=== PATIENT | female | born 1950 | race Hispanic/Latino ===

== ENCOUNTER → 2019-04-02 | Outpatient (CLI) | payer OTHER | END | disposition home or self-care (01) | LOC: RAH 07:35 | PROVIDERS: ATTEND Internal Medicine | DX: K80.11 Calculus of gallbladder with chronic cholecystitis with obstruction (principal) | CPT/HCPCS: 76700 ==

== ENCOUNTER → 2019-04-11 | Outpatient (CLI) | payer OTHER | END | disposition home or self-care (01) | LOC: RAH 13:23 | PROVIDERS: ATTEND Internal Medicine | DX: K57.30 Diverticulosis of large intestine without perforation or abscess without bleeding (principal); K80.20 Calculus of gallbladder without cholecystitis without obstruction | CPT/HCPCS: 74176 ==

== ENCOUNTER 2024-09-08 09:55 | Observation (INO) | payer OTHER ==
[~2024-09-08] VITALS: Ht 162.6 cm; Wt 62.6 kg
[2024-09-08 11:19] LABS: CARBON DIOXIDE 33 mmol/L (21-32); CHLORIDE 97 mmol/L (101-111); GLOMERULAR FILTR. RATE CALC 59 mL/min (>90); GLUCOSE,RANDOM 113 mg/dL (70-105); POTASSIUM 3.3 mmol/L (3.5-5.1); SODIUM SERUM 141 mmol/L (136-145); UREA NITROGEN, BLOOD 14 mg/dL (7-18)
[2024-09-08 11:20] LABS: BASOPHILS # (AUTO) 0.04 K/uL (0.00-0.20); BASOPHILS % (AUTO) 0.3 % (0.0-5.0); EOSINOPHILS # (AUTO) 0.02 K/uL (0.00-0.70); EOSINOPHILS % (AUTO) 0.2 % (0.0-8.0); HEMATOCRIT 39.7 % (36-48); IMMATURE GRANULOCYTE ABSOLUTE 0.09 K/uL (0-1); LYMPHOCYTES # (AUTO) 1.1 K/uL (1.0-4.8); LYMPHOCYTES % (AUTO) 8.4 % (21.0-51.0); MEAN CORPUSCULAR HEMOGLOBIN 28.1 pg (27.0-33.0); MEAN CORPUSCULAR HGB CONC 32.7 g/dL (32.0-36.0); MEAN CORPUSCULAR VOLUME 85.9 fL (79-99); MONOCYTES # (AUTO) 0.6 K/uL (0.1-1.0); MONOCYTES % (AUTO) 4.6 % (3.0-13.0); NEUTROPHILS # (AUTO) 11.2 K/uL (1.8-7.7); NEUTROPHILS % (AUTO) 85.8 % (40.0-77.0); PLATELET COUNT (AUTO) 368 K/uL (130-400); RED BLOOD CELL COUNT(AUTO) 4.62 MIL/uL (4.00-5.50); RED CELL DISTRIBUTION WIDTH 12.8 % (11.0-15.5)
[2024-09-08 11:22] LABS: APPEARANCE,URINE CLEAR (CLEAR); BILIRUBIN,URINE NEGATIVE (NEGATIVE); COLOR,URINE YELLOW (YELLOW); GLUCOSE, URINE (UA) NEGATIVE (NEGATIVE); KETONES,URINE 10 mg/dL (NEGATIVE); LEUKOCYTE ESTERASE ,URINE 25 Leu/uL (NEGATIVE); NITRATE,URINE NEGATIVE (NEGATIVE); OCCULT BLOOD,URINE NEGATIVE (NEGATIVE); PH,URINE 6.5 (5.0-8.0); PROTEIN,URINE NEGATIVE (NEGATIVE); UROBILINOGEN,URINE 0.2 mg/dL (0.2-1.0)
[2024-09-08 11:25] LABS: ALANINE AMINOTRANSFERASE 16 U/L (12-78); ALBUMIN 2.8 g/dL (3.5-5.0); ASPARTATE AMINOTRANSFERASE 23 U/L (10-37); BILIRUBIN,DIRECT < 0.1 mg/dL (0.0-0.3); BILIRUBIN,TOTAL 0.4 mg/dL (0.2-1.0)
--- NOTE | 2024-09-08 11:27 | ERN ---
ED Note History of Present Illness Stated Complaint: DIZZINESS X 3 DAYS Chief Complaint: Dizzy/Light Headed Time Seen by MD: 10:17 Time Seen by Midlevel: 10:20 Dictation: 74-year-old female with a history of hypertension and cholesterol coming in complaining of left lower quadrant pain, chills. Patient states this has been going on since . Went to go see her PCP on the and was placed on levofloxacin, and Flagyl for a stomach infection and a urinary tract infection. Patient states also two days ago she began having a dark diarrhea. As per spouse patient has had problems with her digestive system for years but never this fat. Allergies: Coded Allergies: No Known Allergies (Unverified Allergy, Unknown, 09/08/24) Home Meds Active Scripts Albuterol Sulfate (Proair Respiclick) 90 Mcg Aer.pow.ba, 2 PUFF IH Q6HPRN PRN for shortness of breath, #1 EACH 0 Refills Prov:TD STEWART MD 09/08/24 Divalproex Sodium (Divalproex Sodium ER) 500 Mg Tab.er.24h, 500 MG PO BID for 90 Days, #180 TAB Prov:TD STEWART MD 09/08/24 Hydrochlorothiazide (Hydrochlorothiazide) 25 Mg Tablet, 25 MG PO DAILY, #90 TAB Prov:TD STEWART MD 09/08/24 Rosuvastatin Calcium (Rosuvastatin Calcium) 5 Mg Tablet, 5 MG PO QMOWEFR, #30 TAB Prov:TD STEWART MD 09/08/24 Past Medical History Past Medical History: High Cholesterol, Hypertension Surgical History: None Review of System Dictation Constitutional: Negative for fever,chills, and weight loss Eyes: Negative for injury, pain,redness, and discharge ENT: Negative for injury,pain or swelling Cardiovascular: Negative for chest pain, palpitations, and edema Respiratory: Negative for shortness of breath, cough, and wheezing, Abdomen/GI: Positive for left lower quadrant pain and nausea and diarrhea, no constipation Back: Negative for injury and pain : Negative for injury, bleeding and discharge MS/Extremity: Negative for injury and deformity Skin: Negative for rash, and discoloration Neuro: Negative for headache, weakness, numbness, tingling, and seizure Psych: Negative for suicide ideation, homicidal ideation, and hallucinations Review of Systems: was completed Initial Vital Sign VS Vital Signs Date Time Temp Pulse Resp B/P (MAP) Pulse Ox O2 Delivery O2 Flow Rate FiO2 09/08/24 09:58 97.9 108 16 137/100 99 Room Air 0 09/08/24 10:45 21 Physical Exam Dictation General: awake, alert, NAD Head/Face: Normocephalic, atraumatic Eyes: PERRL, EOMI, vision at baseline ENT: oral cavity clear, TMs clear, no signs of infection Neck: Trachea midline, supple, no nuchal rigidity Cardiovascular: RRR, normal S1/S2, No MRGs, no JVD Respiratory: CTAB, no respiratory distress, No rales or wheezes Abdomen: Soft, tenderness to left lower quadrant on palpation, normal bowel sounds, no guarding or rebound. Skin: Warm, dry, normal turgor, no rash MS/Extremity: Pulses equal, no cyanosis, neurovascular intact, FROM Neuro: COAx4, GCS 15, strength 5/5, CN 2-12 intact, normal cerebellar exam, normal gait, Psych: Normal behavior, mood, and affect normal Results (Laboratory/Radiology) Laboratory/Radiology Laboratory Tests Test 09/08/24 10:50 09/08/24 11:03 09/08/24 11:50 White Blood Count 13.0 K/uL (4.8-10.8) H Red Blood Count 4.62 MIL/uL (4.00-5.50) Hemoglobin 13.0 g/dL (12.0-16.0) Hematocrit 39.7 % (36-48) Mean Corpuscular Volume 85.9 fL (79-99) Mean Corpuscular Hemoglobin 28.1 pg (27.0-33.0) Mean Corpuscular Hemoglobin Concent 32.7 g/dL (32.0-36.0) Red Cell Distribution Width 12.8 % (11.0-15.5) Platelet Count 368 K/uL (130-400) Mean Platelet Volume 11.4 fL (7.5-10.5) H Immature Granulocyte % (Auto) 0.7 % (0-1) Neutrophils (%) (Auto) 85.8 % (40.0-77.0) H Lymphocytes (%) (Auto) 8.4 % (21.0-51.0) L Monocytes (%) (Auto) 4.6 % (3.0-13.0) Eosinophils (%) (Auto) 0.2 % (0.0-8.0) Basophils (%) (Auto) 0.3 % (0.0-5.0) Neutrophils # (Auto) 11.2 K/uL (1.8-7.7) H Lymphocytes # (Auto) 1.1 K/uL (1.0-4.8) Monocytes # (Auto) 0.6 K/uL (0.1-1.0) Eosinophils # (Auto) 0.02 K/uL (0.00-0.70) Basophils # (Auto) 0.04 K/uL (0.00-0.20) Absolute Immature Granulocyte (auto 0.09 K/uL (0-1) Nucleated Red Blood Cells 0.0 % (0.0-0.19) White Cell Morphology Comment See comments Sodium Level 141 mmol/L (136-145) Potassium Level 3.3 mmol/L (3.5-5.1) L Chloride Level 97 mmol/L (101-111) L Carbon Dioxide Level 33 mmol/L (21-32) H Blood Urea Nitrogen 14 mg/dL (7-18) Creatinine 1.0 mg/dL (0.5-1.0) Glomerular Filtration Rate Calc 59 mL/min (>90) Random Glucose 113 mg/dL (70-105) H Total Calcium 9.7 mg/dL (8.5-10.1) Total Bilirubin 0.4 mg/dL (0.2-1.0) Direct Bilirubin < 0.1 mg/dL (0.0-0.3) Aspartate Amino Transf (AST/SGOT) 23 U/L (10-37) Alanine Aminotransferase (ALT/SGPT) 16 U/L (12-78) Alkaline Phosphatase 78 U/L (50-136) Total Protein 8.0 g/dL (6.0-8.3) Albumin 2.8 g/dL (3.5-5.0) L Urine Color YELLOW (YELLOW) Urine Appearance CLEAR (CLEAR) Urine pH 6.5 (5.0-8.0) Urine Specific [place] 1.013 (1.001-1.031) Urine Protein NEGATIVE mg/dL (NEGATIVE) Urine Glucose (UA) NEGATIVE mg/dL (NEGATIVE) Urine Ketones 10 mg/dL (NEGATIVE) H Urine Occult Blood NEGATIVE (NEGATIVE) Urine Nitrate NEGATIVE (NEGATIVE) Urine Bilirubin NEGATIVE mg/dL (NEGATIVE) Urine Urobilinogen 0.2 mg/dL (0.2-1.0) Urine Leukocyte Esterase 25 Patrizia/uL (NEGATIVE) H Urine RBC 2-5 /HPF (0-1) H Urine WBC 0-1 /HPF (0-1) Urine Squamous Epithelial Cells FEW /HPF (0-2) Urine Bacteria RARE /HPF (None Seen) Stool Occult Blood NEGATIVE (NEGATIVE) Labs Reviewed?: Yes EKG: (+) NSR CT Scan Comment: [facility] [address] [place], [place] [id number] IMAGING REPORT Signed PATIENT: CONSTANZA LIGHT MR#: [id number] : 1950 SEX: F AGE: 74 LOCATION: [facility] ORDER [id number] STATUS: [facility] REPORT#: [id number] SERVICE 1057 REASON: llq pain ORDERING PHYSICIAN: KELLEY SEVERINO NP PROCEDURE: ABD PEL W - CT ABDOMEN/PELVIS W/CONTRAST CT ABDOMEN/PELVIS W/CONTRAST HISTORY: No additional history given. COMPARISON: None TECHNIQUE: Multiple sequential axial images of the abdomen and pelvis were obtained from the dome of the diaphragm through symphysis pubis. Patient was not given contrast through intravenous route. Oral contrast was not given. FINDINGS: No pleural effusion is seen bilaterally. There is no evidence of parenchymal disease or pulmonary nodule of the visualized lower lungs. Degenerative changes of the thoracolumbar spine are present. The heart is not enlarged. Liver measured 15 cm. There is elevation of left hemidiaphragm. There is diverticulosis. Mesenteric fat stranding is seen adjacent to the descending colon and sigmoid colon suggestive of acute diverticulitis. No focal abscess is seen. Appendix is not well seen limiting evaluation. The liver, spleen, adrenal glands and pancreas are unremarkable. There is no evidence of hydronephrosis bilaterally. No evidence of renal stone is seen. Fecal material is seen in the colon. There are normal size retroperitoneal and mesenteric lymph nodes. No ascites is seen. Atherosclerotic changes are present. Pelvic sidewalls are symmetric bilaterally. Bladder is well distended without wall thickening. IMPRESSION: 1. There is elevation of left hemidiaphragm. There is diverticulosis. Mesenteric fat stranding is seen adjacent to the descending colon and sigmoid colon suggestive of acute diverticulitis. No focal abscess is seen. Appendix is not well seen limiting evaluation. CT was performed with one or more following dose reduction techniques: automated exposure control, adjustment of the mA and kv according to patient's size, or use of a iterative reconstruction technique. DICTATED BY: ADALID HIDALGO MD DATE: 09/08/24 1331 ELECTRONICALLY SIGNED BY: ADALID HIDALGO MD DATE: 09/08/24 1335 ED Course ED Course Orders Procedure Category Date Status Time Basic Metabolic Panel LAB 09/08/24 Complete 10:55 Cbc With Differential LAB 09/08/24 Complete 10:53 Urinalysis Profile LAB 09/08/24 Complete 10:53 12 Lead Ekg Tracing- EKG 09/08/24 Complete Technical 10:57 Ct Abdomen/Pelvis CT 09/08/24 Resulted W/Contrast 10:57 Hepatic Function Panel LAB 09/08/24 Complete 10:50 0.9%Nacl 1000ml (Ns PHA 09/08/24 Complete 1000ml) 11:30 Occult Blood Stool LAB 09/08/24 Complete Single Only 11:30 Iohexol (Omnipaque) PHA 09/08/24 Complete 12:56 Ceftriaxone 2gm Vial PHA 09/08/24 Complete (Rocephin 2gm Inj) 13:45 Edm Admit Bridge Order ADM 09/08/24 Transmitted 13:52 Admit Orders ADM 09/08/24 Transmitted 13:52 Clear Liquid DIET 09/08/24 Transmitted Lunch Vs Per Unit Routine & CPOE 09/08/24 Transmitted With 13:52 Ceftriaxone 2gm Vial PHA 09/08/24 In Process (Rocephin 2gm Inj) 14:00 Acetaminophen 325 Tab PHA 09/08/24 In Process (Tylenol 325mg Tab 14:00 Ondansetron 4mg Inj PHA 09/08/24 In Process (Zofran 4mg Inj) 14:00 Metronidazole PHA 09/08/24 Complete 500mg/100ml Bag 21:00 Metronidazole PHA 09/08/24 Complete 500mg/100ml Bag 14:30 Metronidazole PHA 09/08/24 Complete 500mg/100ml Bag 22:00 Metronidazole PHA 09/08/24 In Process 500mg/100ml Bag 15:00 Initiate Po SCOTT 09/08/24 In Process Hypokalemia Protoc 15:40 Potassium Chloride PHA 09/08/24 In Process 20meq/100ml ([place] 16:00 Potassium Chl 10% PHA 09/08/24 In Process Elixir 20meq (Kcl 10% 16:00 Potassium Chloride PHA 09/08/24 In Process 20meq Er (K-Dur/Klor- 16:00 Notify Physician If CPOE 09/08/24 Transmitted There Is 15:40 Notify Md On The Next CPOE 09/08/24 Transmitted 15:40 Notify Md On The CPOE 09/08/24 Transmitted Next(Cont.) 15:40 Current Medications Medications (Trade) Dose Ordered Sig/Dasha Route PRN Reason Start Time Stop Time Status Last Admin Dose Admin Ceftriaxone Sodium (Rocephin 2gm Inj) 2 gm ONCE STAT IVPB 09/08/24 13:45 09/08/24 13:46 DC Iohexol (Omnipaque) 35,000 mg STK-MED ONCE IV 09/08/24 12:56 09/08/24 12:56 DC Sodium Chloride 1,000 ml @ 1,000 mls/hr Q1H STAT IV 09/08/24 11:30 09/08/24 12:29 DC 09/08/24 11:33 Vital Signs Date Time Temp Pulse Resp B/P (MAP) Pulse Ox O2 Delivery O2 Flow Rate FiO2 09/08/24 16:00 Room Air* 0 21 09/08/24 15:50 97.9 97 20 138/86 93 Room Air 09/08/24 12:00 98.4 99 16 129/79 99 Room Air* 0 21 09/08/24 10:45 98.4 100 18 146/88 99 Room Air* 0 21 09/08/24 09:58 97.9 108 16 137/100 99 Room Air 0 Medical Decision Making MDM MDM: 74-year-old female with a history of hypertension and cholesterol coming in complaining of left lower quadrant pain, chills. Patient states this has been going on since . Went to go see her PCP on the and was placed on levofloxacin, and Flagyl for a stomach infection and a urinary tract infection. Patient states also two days ago she began having a dark diarrhea. As per spouse patient has had problems with her digestive system for years. CBC shows mild leukocytosis, no anemia, no thrombocytopenia. Chemistry shows hypokalemia, hypochloremia, normal kidney function. UA shows no evidence of urinary tract infection. CT scan shows evidence of diverticulitis. Being that patient has been antibiotics for three days with no improvement patient will be admitted for IV antibiotics and IV fluids. Spoke to Dr. Stewart, came to admit the patient. Differential diagnosis: Viral gastroenteritis, UTI, diverticulitis, diverticu losis Rationale: Tests considered and ordered secondary to shared decision making include: labs, ECG and radiology Previous outside records reviewed: Old ER visits. Risk of complication and/or morbidity or mortality of patient management: None Medications-Per medication reconciliation Need for hospitalization: Patient does meet criteria for hospitalization. Need for emergency major/minor surgery: No There are no social concerns with this patient. Prescription drug management Prescriptions will include symptomatic care Patient's prior external medical records from other ER visits were reviewed by me as indicated. Prior testing and results from previous visits were reviewed. Prior tests were taken into account with medical decision making and resource utilization, independent historian/historians were used to obtain complete medical history. I independently interpreted the test that were performed, results were reviewed by me and considered findings on radiology if ordered. Medical management and examination interpretation discussions were had by me with other qualified healthcare professionals as indicated for the patient's care. DX & DISP Disposition: Inpatient Decision to Admit Date: Sep 08, 2024 Decision to Admit Time: 13:52 Departure Impression: Primary Impression: Diverticulitis Condition: Stable Scripts Albuterol Sulfate (Proair Respiclick) 90 Mcg Aer.pow.ba 2 PUFF IH Q6HPRN PRN for shortness of breath, #1 EACH 0 Refills Prov: TD STEWART MD 09/08/24 Divalproex Sodium (Divalproex Sodium ER) 500 Mg Tab.er.24h 500 MG PO BID for 90 Days, #180 TAB Prov: TD STEWART MD 09/08/24 Hydrochlorothiazide (Hydrochlorothiazide) 25 Mg Tablet 25 MG PO DAILY, #90 TAB Prov: TD STEWART MD 09/08/24 Rosuvastatin Calcium (Rosuvastatin Calcium) 5 Mg Tablet 5 MG PO QMOWEFR, #30 TAB Prov: TD STEWART MD 09/08/24 Referrals: TD STEWART MD (PCP) I have reviewed the case, and I agree with, Diagnosis and Plan I performed this substantive portion of this visit. I have reviewed and personally made and approve the management plan that is documented in the note by myself or the [facility]. I acknowledge full responsibility for the patient's management plan. KELLEY SEVERINO NP Sep 08, 2024 11:27 ANTOLIN COPPOLA MD Sep 08, 2024 18:44
[2024-09-08 11:28] LABS: ADD UA MICROSCOPIC YES
[2024-09-08] MEDS: 0.9%NACL 1000ML 1,000 ML IV STA (11:33)
[2024-09-08 11:59] LABS: BACTERIA,URINE RARE /HPF (None Seen); MUCUS,URINE RARE LPF (None Seen); SQUAMOUS EPITHELIAL CELL,UR FEW /HPF (0-2); WBC,URINE 0-1 /HPF (0-1)
[2024-09-08] MEDS ORDERED: IOHEXOL 350 MG/ML 100ML INFUS..BTL IV ONE (12:56)
--- NOTE | 2024-09-08 13:35 | HMCIMG ---
CT ABDOMEN/PELVIS W/CONTRAST HISTORY: No additional history given. COMPARISON: None TECHNIQUE: Multiple sequential axial images of the abdomen and pelvis were obtained from the dome of the diaphragm through symphysis pubis. Patient was not given contrast through intravenous route. Oral contrast was not given. FINDINGS: No pleural effusion is seen bilaterally. There is no evidence of parenchymal disease or pulmonary nodule of the visualized lower lungs. Degenerative changes of the thoracolumbar spine are present. The heart is not enlarged. Liver measured 15 cm. There is elevation of left hemidiaphragm. There is diverticulosis. Mesenteric fat stranding is seen adjacent to the descending colon and sigmoid colon suggestive of acute diverticulitis. No focal abscess is seen. Appendix is not well seen limiting evaluation. The liver, spleen, adrenal glands and pancreas are unremarkable. There is no evidence of hydronephrosis bilaterally. No evidence of renal stone is seen. Fecal material is seen in the colon. There are normal size retroperitoneal and mesenteric lymph nodes. No ascites is seen. Atherosclerotic changes are present. Pelvic sidewalls are symmetric bilaterally. Bladder is well distended without wall thickening. IMPRESSION: 1. There is elevation of left hemidiaphragm. There is diverticulosis. Mesenteric fat stranding is seen adjacent to the descending colon and sigmoid colon suggestive of acute diverticulitis. No focal abscess is seen. Appendix is not well seen limiting evaluation. CT was performed with one or more following dose reduction techniques: automated exposure control, adjustment of the mA and kv according to patient's size, or use of a iterative reconstruction technique.
[2024-09-08] MEDS ORDERED: acetaMINOPHEN 325 MG TAB PO PRN (14:00)
[2024-09-08] MEDS ORDERED: ondanSETRON 4MG INJ IVP PRN (14:00)
[2024-09-08] MEDS ORDERED: ALBU90AE IH (14:09)
[2024-09-08] MEDS ORDERED: DIVA500T52 PO (14:09)
[2024-09-08] MEDS ORDERED: ROSU5TAB51 PO (14:09)
[2024-09-08] MEDS ORDERED: HYDR25TA PO (14:09)
--- NOTE | 2024-09-08 14:25 | EKG ---
[facility] Test Date: 2024-09-08 Test Time: 11:07:24 Pat Name: CONSTANZA LIGHT Department: [facility] Room: 326 Gender: F Supervisor Receiving And Processing: 1006 : 1950 Requested By: KELLEY SEVERINO Order Number: [id number] Reading MD: Luci Bangura Measurements Intervals [place] Rate: 99 P: 43 SD: 137 QRS: 37 QRSD: 88 T: 15 QT: 384 QTc: 494 Interpretive Statements Sinus rhythm Low voltage, extremity leads Compared to ECG 10/27/2015 20:05:20 Low QRS voltage now present Sinus bradycardia no longer present Electronically Signed On 09-11-2024 08:15:54 ORNAMENTAL BRICK INSTALLER by Luci Bangura Please click the below link to view image of tracing.
[2024-09-08] MEDS ORDERED: metRONIDazole 500MG/100ML BAG IV SCH ×2 (14:30→21:00)
[2024-09-08] MEDS: CEFTRIAXONE 2GM VIAL IVPB STA (14:50)
[2024-09-08] MEDS: CEFTRIAXONE 2GM VIAL IVPB SCH (14:50)
[2024-09-08] MEDS: metRONIDazole 500MG/100ML BAG 100 ML IVPB SCH (14:51)
--- NOTE | 2024-09-08 15:31 | NUR ---
REPORT GIVEN TO [place] NURSE AT 1530 PT AAOX4 STABLE NO DISTRESS VITALS WNL NO C/O PAIN NOW. PT TRANSPORTED BY W/C WITH PERSONAL BELONGINGS.
--- NOTE | 2024-09-08 15:41 | NUR ---
HOME MEDICATIONS HAVE BEEN RECONCILED.
[2024-09-08 15:50] VITALS: BP 138/86; PULSE 97; RESP 20; TEMP 97.8
[2024-09-08] MEDS ORDERED: PoTASSium chloRIDE 20MEQ/100ML 100 ML IV PRN (16:00)
[2024-09-08] MEDS: PoTASSium chl 10% ELIXIR 20MEQ 20 MEQ/15 ML UDCUP PO PRN (16:45)
[2024-09-08 20:00] VITALS: BP 142/74; PULSE 91; RESP 20; TEMP 98
[2024-09-08] MEDS ORDERED: metRONIDazole 500MG/100ML BAG 100 ML IVPB SCH (22:00)
--- NOTE | 2024-09-08 23:24 | HP ---
HISTORY AND PHYSICAL Date of Visit: Sep 08, 2024 Time of Visit: 23:24 ADMISSION DATE: Sep 08, 2024 at 13:52 CC: ABD PAIN HPI: THIS IS A 74 YR OLD WOMAN WITH HISTORY OF HTN COPD HYPERLIPIDEMIA AND METABOLIC SYNDROME WHO PRESENTED COMPLAINING IF LLQ ABDOMINAL PAIN. DURATION 3-4 WEEKS. HAS BEEN SEEN IN THE OFFICE AND TREATED CONSERVATIVELY FOR ACUTE GASTROENTERITIS BUT HER SYMPTOMS WAXED AND WANED. SHE WAS THEN STARTED ON LEVAQUIN AND FLAGYL 3 DAYS AGO AND STILL FELT NO IMPROVEMENT. SHE HAD SOME ASSOCIATED CHILL AND WITH THE ANTIBIOTICS 3 DAYS AGO SHE STARTED TO HAVE DIARRHEA WITH DARK COLORED STOOL. REPORTS COMPLIANCE WITH HER MEDICATIONS. NO CP SOB PALPITATIONS ABNORMAL WEIGHT LOSS. DID HAVE SOME NAUSEA BUT NO VOMITING. 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 Degenerative joint disease involving multiple joints Metabolic syndrome Gastroesophageal reflux disease without esophagitis Mixed hyperlipidemia Osteopenia Trigeminal neuralgia Chronic kidney disease stage 2 Cholelithiasis without obstruction SOCIAL HISTORY: LIVES LOCALLY + SMOKER BUT DENIES ALCOHOL OR DRUG ABUSE FAMILY HISTORY: + DM HTN SUDDEN ^ Patient History: Diabetes mellitus SISTER Hypertension SISTER SISTER Sudden Allergies: Coded Allergies: No Known Allergies (Unverified Allergy, Unknown, 09/08/24) Scheduled Divalproex Sodium (Divalproex Sodium ER), 500 MG PO BID Hydrochlorothiazide (Hydrochlorothiazide), 25 MG PO DAILY Levofloxacin (Levofloxacin), 750 MG PO DAILY Metronidazole (Metronidazole), 1 TAB PO TID Rosuvastatin Calcium (Rosuvastatin Calcium), 5 MG PO QMOWEFR Scheduled PRN Albuterol Sulfate (Proair Respiclick), 2 PUFF IH Q6HPRN PRN for shortness of breath Review of Systems Normal Constitutional:, Normal Eyes:, Normal Ear/Nose/Mouth/Throat, Normal Cardiovascular:, Normal Respiratory:, Normal Genitourinary:, Normal Integumentary:, Normal Musculoskeletal:, Normal Neurological:, Normal Psychological:, Normal Endocrine:, Normal Hematologic/Lymphatic:, Normal Allergic/Immunologic:; Abnormal Gastrointestinal: (REFER TO HPI) Physical Exam Vital Signs Vital Signs Date Time Temp Pulse Resp B/P (MAP) Pulse Ox O2 Delivery O2 Flow Rate FiO2 09/08/24 09:58 97.9 108 16 137/100 99 Room Air 0 09/08/24 10:45 21 Appearance: Well dev, well nourished Eyes: Clear, PERRL, EOM Normal Ear/Nose/Mouth/Throat: Landmarks WNL, Hearing WNL, Oropharynx WNL Neck: Symmetric, trach midline, Thyroid WNL Cardiovascular: PMI WNL, Regular Rate Respiratory: No Retractions, No rubs/wheezing, Lungs clear G.I.: Normal bowel sounds, No hepatosplenomegaly, No rebound tenderness, Abnormal Lymphatic: No lymphadenopathy neck, No lymphadenopathy axilla Musculoskeletal: Gait WNL, No misalignment, Strength/Tone WNL Skin: No rash/ulcers Neurology: Nerves I-XII intact Psychology: Insight WNL, Orientation WNL Diagnostics Laboratory Tests Test 09/08/24 10:50 09/08/24 11:03 09/08/24 11:50 Range/Units White Blood Count 13.0 4.8-10.8 K/uL Red Blood Count 4.62 4.00-5.50 MIL/uL Hemoglobin 13.0 12.0-16.0 g/dL Hematocrit 39.7 36-48 % Mean Corpuscular Volume 85.9 79-99 fL Mean Corpuscular Hemoglobin 28.1 27.0-33.0 pg Mean Corpuscular Hemoglobin Concent 32.7 32.0-36.0 g/dL Red Cell Distribution Width 12.8 11.0-15.5 % Platelet Count 368 130-400 K/uL Mean Platelet Volume 11.4 7.5-10.5 fL Immature Granulocyte % (Auto) 0.7 0-1 % Neutrophils (%) (Auto) 85.8 40.0-77.0 % Lymphocytes (%) (Auto) 8.4 21.0-51.0 % Monocytes (%) (Auto) 4.6 3.0-13.0 % Eosinophils (%) (Auto) 0.2 0.0-8.0 % Basophils (%) (Auto) 0.3 0.0-5.0 % Neutrophils # (Auto) 11.2 1.8-7.7 K/uL Lymphocytes # (Auto) 1.1 1.0-4.8 K/uL Monocytes # (Auto) 0.6 0.1-1.0 K/uL Eosinophils # (Auto) 0.02 0.00-0.70 K/uL Basophils # (Auto) 0.04 0.00-0.20 K/uL Absolute Immature Granulocyte (auto 0.09 0-1 K/uL Nucleated Red Blood Cells 0.0 0.0-0.19 % White Cell Morphology Comment See comments Sodium Level 141 136-145 mmol/L Potassium Level 3.3 3.5-5.1 mmol/L Chloride Level 97 101-111 mmol/L Carbon Dioxide Level 33 21-32 mmol/L Blood Urea Nitrogen 14 7-18 mg/dL Creatinine 1.0 0.5-1.0 mg/dL Glomerular Filtration Rate Calc 59 >90 mL/min Random Glucose 113 70-105 mg/dL Total Calcium 9.7 8.5-10.1 mg/dL Total Bilirubin 0.4 0.2-1.0 mg/dL Direct Bilirubin < 0.1 0.0-0.3 mg/dL Aspartate Amino Transf (AST/SGOT) 23 10-37 U/L Alanine Aminotransferase (ALT/SGPT) 16 12-78 U/L Alkaline Phosphatase 78 50-136 U/L Total Protein 8.0 6.0-8.3 g/dL Albumin 2.8 3.5-5.0 g/dL Urine Color YELLOW YELLOW Urine Appearance CLEAR CLEAR Urine pH 6.5 5.0-8.0 Urine Specific [place] 1.013 1.001-1.031 Urine Protein NEGATIVE NEGATIVE mg/dL Urine Glucose (UA) NEGATIVE NEGATIVE mg/dL Urine Ketones 10 NEGATIVE mg/dL Urine Occult Blood NEGATIVE NEGATIVE Urine Nitrate NEGATIVE NEGATIVE Urine Bilirubin NEGATIVE NEGATIVE mg/dL Urine Urobilinogen 0.2 0.2-1.0 mg/dL Urine Leukocyte Esterase 25 NEGATIVE Patrizia/uL Urine RBC 2-5 0-1 /HPF Urine WBC 0-1 0-1 /HPF Urine Squamous Epithelial Cells FEW 0-2 /HPF Urine Bacteria RARE None Seen /HPF Stool Occult Blood NEGATIVE NEGATIVE Assessment/Plan Assessment/Plan ASSESSMENT: THIS IS A 74 YR OLD WOMAN WITH HISTORY OF Atherosclerosis of aorta Nicotine dependence in remission Chronic obstructive pulmonary disease 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 Degenerative joint disease involving multiple joints Metabolic syndrome Gastroesophageal reflux disease without esophagitis Mixed hyperlipidemia Osteopenia Trigeminal neuralgia Chronic kidney disease stage 2 Cholelithiasis without obstruction SHE PRESENTED WITH ACUTE DIVERTICULITIS AFTER FAILING OUTPATIENT MEASURES PLAN: CLEAR LIQUID DIET ANALGESICS AND ANTI EMETICS PRN IVF HYDRATION IV ANTIBIOTICS WITH ROCEPHIN AND FLAGYL HOLD ANTI HYPERTENSIVES AND ADJUST NEEDED SUPPLEMENT ELECTROLYTES INCREASE DIET AND REHAB TOLERATE TEDS AND SCD FOR DVT MPROPHYLAXIS PPI FOR STRESS ULCER PROPHYLAXIS SUPPORTIVE MEASURES TD MARSH MD Sep 08, 2024 23:24
[2024-09-09] VITALS: BP 124/65; PULSE 84; RESP 20; TEMP 97.8
[2024-09-09] MEDS ORDERED: LACTULOSE 20 GM/30 ML UDCUP PO PRN
[2024-09-09] MEDS ORDERED: ondanSETRON 4MG INJ IV PRN
[2024-09-09] MEDS ORDERED: MAG/ALUM/SIMETH 30 ML UDCUP PO PRN
[2024-09-09] MEDS ORDERED: acetaMINOPHEN 325 MG TAB PO PRN ×2
[2024-09-09 04:00] VITALS: BP 133/73; PULSE 89; RESP 20; TEMP 98.1
[2024-09-09 05:57] LABS: HEMATOCRIT 32.7 % (36-48); MEAN CORPUSCULAR HEMOGLOBIN 27.9 pg (27.0-33.0); MEAN CORPUSCULAR HGB CONC 32.1 g/dL (32.0-36.0); MEAN CORPUSCULAR VOLUME 86.7 fL (79-99); RED BLOOD CELL COUNT(AUTO) 3.77 MIL/uL (4.00-5.50); RED CELL DISTRIBUTION WIDTH 13.2 % (11.0-15.5); WHITE BLOOD COUNT (AUTO) 7.9 K/uL (4.8-10.8)
[2024-09-09 06:05] LABS: CREATININE 0.8 mg/dL (0.5-1.0); POTASSIUM 3.4 mmol/L (3.5-5.1)
[2024-09-09] MEDS: PoTASSium chloRIDE 20MEQ ER 20 MEQ ERTAB PO PRN (06:34)
[2024-09-09 08:00] VITALS: O2SAT 95
[2024-09-09 08:48] VITALS: BP 155/98; PULSE 93; RESP 18; TEMP 98.3
[2024-09-09] MEDS: PoTASSium chloRIDE 20MEQ ER 20 MEQ ERTAB PO SCH (08:51)
[2024-09-09] MEDS: PANTOPrazole 40 MG TAB DR PO SCH (08:51)
--- NOTE | 2024-09-09 10:39 | NUR ---
[facility] Initial Assessment Met with patient at bedside. Patient stated she lives with and feels safe in her home environment. Pt is independent, drives and needs no assistance with her ADL's. [email or web address] discharge: Home Addendum: 09/09/24 at 1042 by CHRISTIANO LOPEZ RN CM Amended: Links added.
[2024-09-09 11:52] VITALS: BP 163/95; PULSE 101; RESP 18; TEMP 97.8
[2024-09-09] MEDS: metRONIDazole 500 MG TABLET PO SCH (14:31)
[2024-09-09 16:34] VITALS: BP 137/85; PULSE 85; RESP 18; TEMP 98.1
[2024-09-09] MEDS ORDERED: LEVO750T40 PO (18:15)
[2024-09-09] MEDS ORDERED: METR-172 PO (18:15)
[2024-09-09] MEDS ORDERED: CEPH500T PO (18:16)
--- NOTE | 2024-09-09 18:18 | DS ---
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 There is no evidence of parenchymal disease or pulmonary nodule of the visualized lower lungs. Degenerative changes of the thoracolumbar spine are present. The heart is not enlarged. Liver measured 15 cm. There is elevation of left hemidiaphragm. There is diverticulosis. Mesenteric fat stranding is seen adjacent to the descending colon and sigmoid colon suggestive of acute diverticulitis. No focal abscess is seen. Appendix is not well seen limiting evaluation. The liver, spleen, adrenal glands and pancreas are unremarkable. There is no evidence of hydronephrosis bilaterally. No evidence of renal stone is seen. Fecal material is seen in the colon. There are normal size retroperitoneal and mesenteric lymph nodes. No ascites is seen. Atherosclerotic changes are present. Pelvic sidewalls are symmetric bilaterally. Bladder is well distended without wall thickening. IMPRESSION: There is elevation of left hemidiaphragm. There is diverticulosis. Mesenteric fat stranding is seen adjacent to the descending colon and sigmoid colon suggestive of acute diverticulitis. No focal abscess is seen. Appendix is not well seen limiting evaluation. HOSPITAL COURSE: THIS IS A 74 YR OLD WOMAN WITH TH ABOVE PMH WHO PRESENTED WITH SIGNS AND SYMPTOMS OF ACUTE DIVERTICULITIS AFTER FAILING OUTPATIENT MEASURES. SHE WAS TREATED WITH IV ROCEPHIN AND METRONIDAZOLE. SHE RESPONDED WELL AND HER DIET AND ACTIVITY WERE ADVANCED WITHOUT DIFFICULTY AND DISCHARGED THE FOLLOWING DAY. HER ANTIBIOTICS WERE CHANGED TO CEPHALEXIN AND METRONIDAZOLE AND WAS ABLE TO TAKE THEM ORALLY. PREVIOUSLY SHE WAS ON LEVAQUIN WITH METRONIDAZOLE AND CONCERNED HIGH DOSE LEVAQUIN WAS CAUSING SOME GI SIDE EFFECTS. DIET: HEART HEALTHY ACTIVITY: RESUME AMBULATION CONDITION: STABLE EQUIPMENT: NONE FOLLOW UP APPOINTMENT(S): DR STEWART 2-5 DAYS DISPOSITION: HOME CODE STATUS: FULL MEDICATION RECONCILIATION : CONT METRONIDAZOLE 500 MG PO TID OLVERA LEVAQUIN TO CEPHALEXIN 500 MG PO TID ^ Home Meds Active Scripts Cephalexin (Cephalexin) 500 Mg Tablet, 1 TAB PO TID for 7 Days, #21 TAB 0 Refills Prov:TD STEWART MD 09/09/24 Metronidazole (Metronidazole) 500 Mg Tablet, 1 TAB PO TID for 10 Days, #30 TAB 0 Refills Prov:TD STEWART MD 09/09/24 Albuterol Sulfate (Proair Respiclick) 90 Mcg Aer.pow.ba, 2 PUFF IH Q6HPRN PRN for shortness of breath, #1 EACH 0 Refills Prov:TD STEWART MD 09/08/24 Divalproex Sodium (Divalproex Sodium ER) 500 Mg Tab.er.24h, 500 MG PO BID for 90 Days, #180 TAB Prov:TD STEWART MD 09/08/24 Hydrochlorothiazide (Hydrochlorothiazide) 25 Mg Tablet, 25 MG PO DAILY, #90 TAB Prov:TD STEWART MD 09/08/24 Rosuvastatin Calcium (Rosuvastatin Calcium) 5 Mg Tablet, 5 MG PO QMOWEFR, #30 TAB Prov:TD STEWART MD 09/08/24 Discontinued Scripts Levofloxacin (Levofloxacin) 750 Mg Tablet, 750 MG PO DAILY, #10 TAB Prov:TD STEWART MD 09/09/24 TD STEWART MD Sep 09, 2024 18:18
--- NOTE | 2024-09-09 18:53 | NUR ---
PATIENT DISHCARGED HOME ID BAND AND IV REMOVED. DISCHARGE INSTRUCTING EXPLAINED AND GIVEN TO PATIENT. PATIENT VERBALIZED UNDERSTANDING. BELONGIGNS PACKED AND TAKEN BY PATIENT. WHEELED DOWN TO PRIVATE CAR.
== END 2024-09-09 19:00 | disposition home or self-care (01) ==
LOC: EDH 09:55 → INTOOBSV 13:52 → EDHIP 13:52 → 3DH 15:50
PROVIDERS: ADMIT Internal Medicine; ATTEND Internal Medicine
DX: R10.32 Left lower quadrant pain (principal); I70.0 Atherosclerosis of aorta; J44.9 Chronic obstructive pulmonary disease, unspecified; G62.9 Polyneuropathy, unspecified; E88.810 Metabolic syndrome; K52.9 Noninfective gastroenteritis and colitis, unspecified; K57.32 Diverticulitis of large intestine without perforation or abscess without bleeding; K21.9 Gastro-esophageal reflux disease without esophagitis; E78.2 Mixed hyperlipidemia; M85.80 Other specified disorders of bone density and structure, unspecified site; G50.0 Trigeminal neuralgia; I12.9 Hypertensive chronic kidney disease with stage 1 through stage 4 chronic kidney disease, or unspecified chronic kidney disease; E11.22 Type 2 diabetes mellitus with diabetic chronic kidney disease; N18.2 Chronic kidney disease, stage 2 (mild); K80.20 Calculus of gallbladder without cholecystitis without obstruction; E11.40 Type 2 diabetes mellitus with diabetic neuropathy, unspecified; E87.6 Hypokalemia; E87.8 Other disorders of electrolyte and fluid balance, not elsewhere classified; M19.90 Unspecified osteoarthritis, unspecified site; N39.0 Urinary tract infection, site not specified; E78.00 Pure hypercholesterolemia, unspecified; F17.201 Nicotine dependence, unspecified, in remission; Z79.899 Other long term (current) drug therapy
CPT/HCPCS: 96361; 96365; 96366 ×2; 96368; 99285; 80076; 80048 ×2; 85025; 82270; 81001; 36415 ×2; 74177; 93005; 85027; G0378 ×19; J0696 ×2; J3490 ×3; Q9967; 96360